=== PATIENT | male | born 1975 | race Two or more races ===

== ENCOUNTER 2024-02-02 13:26 | Emergency (ER) | payer MEDICAID ==
[~2024-02-02] VITALS: Ht 172.7 cm; Wt 55.8 kg
[2024-02-02 14:41] VITALS: BP 111/64; PULSE 69; RESP 16; TEMP 97.6; O2SAT 100
[2024-02-02] MEDS ORDERED: IBUP-1454 PO (16:08)
[2024-02-02] MEDS ORDERED: CIPR-173 PO (16:08)
== END 2024-02-02 16:09 | disposition home or self-care (01) ==
LOC: ER 13:26
DX: S61.411A Laceration without foreign body of right hand, initial encounter (principal); W26.8XXA Contact with other sharp object(s), not elsewhere classified, initial encounter; Y93.89 Activity, other specified; Y92.89 Other specified places as the place of occurrence of the external cause; Y99.8 Other external cause status
CPT/HCPCS: 12002